=== PATIENT | female | born 1970 | race Caucasian/White ===

== ENCOUNTER 2022-08-25 18:52 | Emergency (ER) | payer OTHER ==
[2022-08-25 19:13] VITALS: RESP 18; TEMP 98.6; BMI 27.6
[2022-08-25] MEDS ORDERED: morphine CARPU-JECT 4 MG/1 ML DISP.SYRIN IVPUSH ONE (21:49)
[2022-08-25 22:29] VITALS: BP 136/96; PULSE 86
== END 2022-08-25 23:51 | disposition home or self-care (01) ==
LOC: JER 18:52
DX: S52.502A Unspecified fracture of the lower end of left radius, initial encounter for closed fracture (principal); S52.612A Displaced fracture of left ulna styloid process, initial encounter for closed fracture; W19.XXXA Unspecified fall, initial encounter
CPT/HCPCS: 73070-TC-LT-FY; 73090-TC-LT-FY; 73110-TC-LT-FY; 73130-TC-LT-FY; 99284-25